=== PATIENT | male | born 1930 | race Caucasian/White ===

== ENCOUNTER → 2021-02-09 | Outpatient (CLI) | payer MEDICARE, OTHER ==
[~2021-02-09] MED LIST: ACETAMINOPHEN-1 EAC1 PO; EUTHYROX150 MCG PO; FINASTERIDE5 MG PO; GLIPIZIDE ER10 MG PO; LEVAQUIN500 MG PO; LISINOPRIL40 MG PO; PRAVASTATIN SOD20 MG PO
== END ==
LOC: US 09:00 → CATH 10:00
DX: R55 Syncope and collapse (principal)
CPT/HCPCS: 93880